=== PATIENT | female | born 1990 | race Caucasian/White ===

== ENCOUNTER 2018-07-09 10:31 | Emergency (ER) | payer OTHER ==
[~2018-07-09] VITALS: Ht 162.6 cm; Wt 79.4 kg
[2018-07-09] MEDS ORDERED: HYDROcodone/APAP 5/325MG 1 TAB TABLET PO ONE (11:30)
[2018-07-09 12:45] VITALS: BP 120/82
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
[2018-07-09] MEDS ORDERED: DIPHTH,PERTUSS(ACELL),TET TOX 0.5 ML DISP.SYRIN. VAX IM ONE (13:00)
== END 2018-07-09 13:27 | disposition home or self-care (01) ==
LOC: ER 10:31
DX: S00.03XA Contusion of scalp, initial encounter (principal); V49.88XA Car occupant (driver) (passenger) injured in other specified transport accidents, initial encounter; Y93.89 Activity, other specified; Y92.488 Other paved roadways as the place of occurrence of the external cause; Y99.8 Other external cause status
CPT/HCPCS: 70450; 72125; 81025; 90471; 90715; 99284-25